=== PATIENT | male | born 1990 | race Caucasian/White ===

== ENCOUNTER 2018-11-03 08:42 | Emergency (ER) | payer SELFPAY ==
[2018-11-03] MEDS ORDERED: fentaNYL 100 MCG/2 ML SDV IVPUSH ONE (08:53)
--- NOTE | 2018-11-03 08:57 | EDM.PDOC ---
ED HPI GENERAL MEDICAL PROBLEM - General Stated Complaint: right groin pain Time Seen by Provider: 11/03/18 08:45 Source of Information: Reports: Patient History Limitations: Reports: No Limitations - History of Present Illness INITIAL COMMENTS - FREE TEXT/NARRATIVE: states that at about 0700 this AM he developed some right groin pain. It radiates from the testicle up into the right flank area. Did initially show up at the clinic but was unable to walk due to the pain. He was then brought to the ER. Pain is severe and sharp stabbing. Is vomiting. Had been fine prior to this beginning. Denies any trauma to the groin or abdomen. Denies any history of kidney stones. Has never had pain like this in the past. Location: Reports: Abdomen, Other (right testicle) Quality: Reports: Sharp, Stabbing Associated Symptoms: Reports: Nausea/Vomiting Right Groin Pain Score (Numeric/FACES): 6 - Related Data Allergies Allergy/AdvReac Type Severity Reaction Status Date / Time No Known Allergies Allergy Verified 11/03/18 09:08 Home Meds: Home Meds . [No Known Home Meds] 11/03/18 [History] Past Medical History - Past Health History Medical/Surgical History: Denies Medical/Surgical History ED ROS GENERAL - Review of Systems Review Of Systems: See Below Constitutional: Reports: No Symptoms Respiratory: Reports: No Symptoms Cardiovascular: Reports: No Symptoms GI/Abdominal: Denies: Diarrhea : Reports: Flank Pain. Denies: Hematuria Musculoskeletal: Reports: No Symptoms Skin: Reports: No Symptoms Neurological: Reports: No Symptoms ED EXAM, RENAL/ - Physical Exam Exam: See Below Exam Limited By: No Limitations General Appearance: Alert, WD/WN, Severe Distress Respiratory/Chest: No Respiratory Distress Cardiovascular: Regular Rate, Rhythm GI/Abdominal: Normal Bowel Sounds, Tender (to the right flank and into the groin and testicles.) (Male) Exam: No: Hernia, Scrotal Swelling, Scrotum Tenderness (L), Scrotum Tenderness (R), Testicular Tenderness (L), Testicular Tenderness (R) Neurological: Alert, Oriented Course - Vital Signs Last Recorded V/S: Last Vital Signs Temp 98.0 F 11/03/18 08:45 Pulse 75 11/03/18 09:32 Resp 20 11/03/18 09:32 BP 143/76 H 11/03/18 08:45 Pulse Ox 100 11/03/18 09:32 - Orders/Labs/Meds Orders: Active Orders 24 hr Category Date Time Status Abdomen Pelvis wo Cont [CT] Stat Exams 11/03/18 09:04 Taken UA W/MICROSCOPIC [URIN] Stat Lab 11/03/18 09:05 Ordered Sodium Chloride 0.9% [Normal Saline] 1,000 ml Med 11/03/18 09:00 Active IV ASDIRECTED Sodium Chloride 0.9% [Normal Saline] 1,000 ml Med 11/03/18 10:15 Active IV ASDIRECTED Medication Orders Sodium Chloride (Normal Saline) 1,000 mls @ 500 mls/hr IV ASDIRECTED BECKY Last Admin: 11/03/18 11:08 Dose: 500 mls/hr Infusion: 11/03/18 11:04 Dose: 500 mls/hr Admin: 11/03/18 09:04 Dose: 500 mls/hr Sodium Chloride (Normal Saline) 1,000 mls @ 500 mls/hr IV ASDIRECTED BECKY Labs: Laboratory Tests 11/03/18 11/03/18 Range/Units 09:05 09:05 WBC 9.6 (5.0-10.0) 10^3/uL RBC 5.03 (4.50-6.00) 10^6/uL Hgb 15.7 (14.0-18.0) g/dL Hct 44.2 (40.0-54.0) % MCV 87.9 (82.0-94.0) fL MCH 31.2 (27.0-32.0) pg MCHC 35.5 (33.0-38.0) g/dL RDW Coeff of Leif 12.7 (11.0-15.0) % Plt Count 262 (150-400) 10^3/uL Neut % (Auto) 74.0 (35-85) % Lymph % (Auto) 16.0 (10-55) % [place] % (Auto) 7.5 (0-16) % Eos % (Auto) 2.3 (0-5) % Baso % (Auto) 0.2 (0-3) % Neut # (Auto) 7.14 H (1.80-7.00) 10^3/uL Lymph # (Auto) 1.54 (1.00-4.80) 10^3/uL [place] # (Auto) 0.72 (0.00-0.80) 10^3/uL Eos # (Auto) 0.22 (0.00-0.45) 10^3/uL Baso # (Auto) 0.02 10^3/uL Sodium 140 (136-145) mEq/L Potassium 3.4 L (3.5-5.0) mEq/L Chloride 104 (98-106) mEq/L Carbon Dioxide 19 L (21-32) mmol/L BUN 14 (7-18) mg/dL Creatinine 1.4 H (0.7-1.3) mg/dL Est Cr Clr Drug Dosing 74.76 mL/min Estimated GFR (MDRD) > 60 (>=60) mL/min Glucose 167 H (75-99) mg/dL Calcium 9.1 (8.4-10.1) mg/dL Meds: Medications Generic Name Dose Route Start Last Admin Trade Name Freq PRN Reason Stop Dose Admin Sodium Chloride 1,000 mls @ 500 mls/hr 11/03/18 09:00 11/03/18 11:08 Normal Saline IV 500 mls/hr ASDIRECTED BECKY Administration Sodium Chloride 1,000 mls @ 500 mls/hr 11/03/18 10:15 Normal Saline IV ASDIRECTED BECKY Discontinued Medications Generic Name Dose Route Start Last Admin Trade Name Freq PRN Reason Stop Dose Admin Fentanyl 50 mcg 11/03/18 08:53 11/03/18 08:59 Sublimaze IVPUSH 11/03/18 08:54 50 mcg ONETIME ONE Administration Hydromorphone HCl 1 mg 11/03/18 10:11 11/03/18 10:15 Dilaudid IVPUSH 11/03/18 10:12 1 mg ONETIME ONE Administration Ketorolac Tromethamine 60 mg 11/03/18 10:22 11/03/18 10:44 Toradol IM 11/03/18 10:23 60 mg ONETIME ONE Administration Ondansetron HCl 4 mg 11/03/18 09:15 11/03/18 09:06 Zofran IVPUSH 11/03/18 09:16 4 mg NOW ONE Administration Tamsulosin HCl 0.4 mg 11/03/18 10:23 11/03/18 10:44 Flomax PO 11/03/18 10:24 0.4 mg ONETIME ONE Administration - Re-Assessments/Exams Free Text/Narrative Re-Assessment/Exam: 11/03/18 10:[address] results of 2-3 mm stone in the right ureter above the junction. Will continue the IV fluids and pain meds and get UA when able. Will plane to discharge after IV fluids infused. 11/03/18 12:27 In to visit and his pain is completely gone at this time will discharge at this time. Departure - Departure Time of Disposition: 12:29 Disposition: Home, Self-Care 01 Condition: Good Clinical Impression: Nephrolithiasis - Discharge Information *PRESCRIPTION DRUG MONITORING PROGRAM REVIEWED*: Not Applicable *COPY OF PRESCRIPTION DRUG MONITORING REPORT IN PATIENT BARTOLO: Not Applicable Instructions: Kidney Stones Additional Instructions: push fluids as much as possible recheck if any new concerns noted. - Problem List & Annotations (1) Nephrolithiasis SNOMED Code(s): 56552832 Code(s): N20.0 - CALCULUS OF KIDNEY Status: Acute - Problem List Review Problem List Initiated/Reviewed/Updated: Yes - My Orders Last 24 Hours: My Active Orders 11/03/18 09:00 Sodium Chloride 0.9% [Normal Saline] 1,000 ml IV ASDIRECTED 11/03/18 09:04 Abdomen Pelvis wo Cont [CT] Stat 11/03/18 09:05 UA W/MICROSCOPIC [URIN] Stat 11/03/18 10:15 Sodium Chloride 0.9% [Normal Saline] 1,000 ml IV ASDIRECTED - Assessment/Plan Last 24 Hours: My Active Orders 11/03/18 09:00 Sodium Chloride 0.9% [Normal Saline] 1,000 ml IV ASDIRECTED 11/03/18 09:04 Abdomen Pelvis wo Cont [CT] Stat 11/03/18 09:05 UA W/MICROSCOPIC [URIN] Stat 11/03/18 10:15 Sodium Chloride 0.9% [Normal Saline] 1,000 ml IV ASDIRECTED
[2018-11-03] MEDS: Sodium Chloride 0.9% 1,000 ML IV SCH ×2 (09:04→11:08)
[2018-11-03] MEDS ORDERED: Ondansetron 4 MG/2 ML SDV IVPUSH ONE (09:15)
[2018-11-03 09:27] LABS: CHLORIDE,CL 104 mEq/L (98-106); SODIUM,NA 140 mEq/L (136-145)
[2018-11-03] MEDS ORDERED: HYDROmorphone 1 MG/ML Syringe IVPUSH ONE (10:11)
[2018-11-03] MEDS ORDERED: Sodium Chloride 0.9% 1,000 ML IV SCH (10:15)
[2018-11-03] MEDS ORDERED: Ketorolac 60 MG/2 ML SDV IM ONE (10:22)
[2018-11-03] MEDS ORDERED: Tamsulosin 0.4 MG Cap.ER PO ONE (10:23)
== END 2018-11-03 13:11 | disposition home or self-care (01) ==
LOC: CC.ED 08:42
DX: N13.2 Hydronephrosis with renal and ureteral calculous obstruction (principal)
CPT/HCPCS: 36415; 74176; 80048; 85025; 96365; 96366; 96375; 99284-25; A9270-GY; J1170; J1885; J2405; J3010; J7030

== ENCOUNTER 2020-03-18 13:22 | Emergency (ER) | payer SELFPAY ==
[2020-03-18] MEDS ORDERED: Pantoprazole 40 MG Vial IVPUSH STA (13:51)
[2020-03-18] MEDS ORDERED: Sodium Chloride 0.9% 1,000 ML IV ONE (13:51)
[2020-03-18] MEDS ORDERED: Morphine 2 MG/ML SYRINGE IVPUSH ONE (13:51)
[2020-03-18 13:52] LABS: CHLORIDE,CL 102 mEq/L (98-106); SODIUM,NA 139 mEq/L (136-145)
[2020-03-18] MEDS ORDERED: Iopamidol 755 Mg/ML 100 ML Bottle IVPUSH ONE (13:55)
--- NOTE | 2020-03-18 16:15 | EDM.PDOC ---
ED HPI GENERAL MEDICAL PROBLEM - General Chief Complaint: Abdominal Pain Stated Complaint: Mid ABD Pain Time Seen by Provider: 03/18/20 13:40 Source of Information: Reports: Patient History Limitations: Reports: No Limitations - History of Present Illness INITIAL COMMENTS - FREE TEXT/NARRATIVE: Tashi is a 30 yo male who presents to the ED with complaints of abdominal pain. States the pain started this morning and has progressively gotten worse thru out the day. States it started in the midabdominal area but does feel it into the right side as well. Denies any fevers. No nausea or vomiting. States he has had a decreased in appetite today as well. Has been drinking fluids. Bowel movements typically regular but hasn't went today. Is able to still pass gas. No urinary complaints. Admits to take 4 Advil PM's last night and wasn't sure if this lead to his symptoms. mid abd Pain Score (Numeric/FACES): 10 - Related Data Allergies Allergy/AdvReac Type Severity Reaction Status Date / Time No Known Allergies Allergy Verified 03/18/20 13:47 Home Meds: Home Meds . [No Known Home Meds] 11/03/18 [History] Past Medical History - Past Health History Medical/Surgical History: Denies Medical/Surgical History Neurological History: Reports: Concussion - Infectious Disease History Infectious Disease History: Reports: Chicken Pox - Past Surgical History Neurological Surgical History: Reports: None Social & Family History - Family History Family Medical History: Noncontributory - Tobacco Use Smoking Status *Q: Current Every Day Smoker Years of Tobacco use: 10 Packs/Tins Daily: 1 - Caffeine Use Caffeine Use: Reports: None - Recreational Drug Use Recreational Drug Use: No ED ROS GENERAL - Review of Systems Review Of Systems: See Below Constitutional: Reports: Decreased Appetite. Denies: Fever, Chills HEENT: Reports: No Symptoms Respiratory: Reports: No Symptoms Cardiovascular: Reports: No Symptoms GI/Abdominal: Reports: Abdominal Pain, Decreased Appetite, Flatus. Denies: Bloody Stool, Constipation, Diarrhea, Distension, Nausea, Vomiting : Reports: No Symptoms Musculoskeletal: Reports: No Symptoms Skin: Reports: No Symptoms Neurological: Reports: No Symptoms ED EXAM, GI/ABD - Physical Exam Exam: See Below Exam Limited By: No Limitations General Appearance: Alert. No: Lethargic, Severe Distress, Active Emesis Ears: Normal External Exam, Hearing Grossly Normal Nose: Normal Inspection, Normal Mucosa, No Blood Throat/Mouth: Normal Inspection, No Airway Compromise Head: Atraumatic, Normocephalic Neck: Normal Inspection, Supple Respiratory/Chest: No Respiratory Distress, Lungs Clear, Normal Breath Sounds, Chest Non-Tender Cardiovascular: Regular Rate, Rhythm, No Murmur GI/Abdominal Exam: Normal Bowel Sounds, Soft, No Organomegaly, No Distention, Tender (midepigastric to superior umbilical area) Psychiatric: Normal Affect, Normal Mood Skin Exam: Warm, Dry, Intact Course - Vital Signs Last Recorded V/S: Last Vital Signs Temp 97.9 F 03/18/20 13:29 Pulse 72 03/18/20 14:39 Resp 16 03/18/20 14:39 BP 130/74 03/18/20 14:39 Pulse Ox 98 03/18/20 14:39 - Orders/Labs/Meds Orders: Active Orders 24 hr Category Date Time Status Abdomen Pelvis w Cont [CT] Stat Exams 03/18/20 13:50 Taken Labs: Laboratory Tests 03/18/20 03/18/20 03/18/20 Range/Units 13:32 13:32 13:50 WBC 7.7 (5.0-10.0) 10^3/uL RBC 5.54 (4.50-6.00) 10^6/uL Hgb 17.1 (14.0-18.0) g/dL Hct 48.4 (40.0-54.0) % MCV 87.4 (82.0-94.0) fL MCH 30.9 (27.0-32.0) pg MCHC 35.3 (33.0-38.0) g/dL RDW Coeff of Leif 12.6 (11.0-15.0) % Plt Count 266 (150-400) 10^3/uL Neut % (Auto) 57.6 (35-85) % Lymph % (Auto) 31.7 (10-55) % [place] % (Auto) 8.2 (0-16) % Eos % (Auto) 2.0 (0-5) % Baso % (Auto) 0.5 (0-3) % Neut # (Auto) 4.41 (1.80-7.00) 10^3/uL Lymph # (Auto) 2.43 (1.00-4.80) 10^3/uL [place] # (Auto) 0.63 (0.00-0.80) 10^3/uL Eos # (Auto) 0.15 (0.00-0.45) 10^3/uL Baso # (Auto) 0.04 10^3/uL Sodium 139 (136-145) mEq/L Potassium 4.3 (3.5-5.0) mEq/L Chloride 102 (98-106) mEq/L Carbon Dioxide 24 (21-32) mmol/L BUN 14 (7-18) mg/dL Creatinine 1.2 (0.7-1.3) mg/dL Est Cr Clr Drug Dosing TNP Estimated GFR (MDRD) > 60 (>=60) mL/min Glucose 89 D (75-99) mg/dL Lactic Acid 2.3 H (0.4-2.0) mmol/L Calcium 9.8 (8.4-10.1) mg/dL Magnesium 1.7 L (1.8-2.4) mg/dL Total Bilirubin 1.0 (0.0-1.0) mg/dL AST 16 (15-37) U/L ALT 21 (12-78) U/L Alkaline Phosphatase 64 (46-116) U/L C-Reactive Protein < 0.2 L (0.2-0.8) mg/dL Total Protein 8.5 H (6.4-8.2) g/dL Albumin 4.7 (3.4-5.0) g/dL Lipase 94 (73-393) U/L Urine Color (YELLOW) Urine Appearance (CLEAR) Urine pH (4.5-8.0) Ur Specific Johnson (1.003-1.020) Urine Protein (NEGATIVE) mg/dL Urine Glucose (UA) (NEGATIVE) mg/dL Urine Ketones (NEGATIVE) mg/dL Urine Occult Blood (NEGATIVE) Urine Nitrite (NEGATIVE) Urine Bilirubin (NEGATIVE) Urine Urobilinogen (0.2-1.0) EU/dL Ur Leukocyte Esterase (NEGATIVE) Urine Opiates Screen (NEGATIVE) Ur Oxycodone Screen (NEGATIVE) Urine Methadone Screen (NEGATIVE) Ur Barbiturates Screen (NEGATIVE) U Tricyclic Antidepress (NEGATIVE) Ur Phencyclidine Scrn (NEGATIVE) Ur Amphetamine Screen (NEGATIVE) U Methamphetamines Scrn (NEGATIVE) Urine MDMA Screen (NEGATIVE) U Benzodiazepines Scrn (NEGATIVE) Urine Cocaine Screen (NEGATIVE) U Marijuana (THC) Screen (NEGATIVE) 03/18/20 03/18/20 Range/Units 14:34 14:37 WBC (5.0-10.0) 10^3/uL RBC (4.50-6.00) 10^6/uL Hgb (14.0-18.0) g/dL Hct (40.0-54.0) % MCV (82.0-94.0) fL MCH (27.0-32.0) pg MCHC (33.0-38.0) g/dL RDW Coeff of Leif (11.0-15.0) % Plt Count (150-400) 10^3/uL Neut % (Auto) (35-85) % Lymph % (Auto) (10-55) % [place] % (Auto) (0-16) % Eos % (Auto) (0-5) % Baso % (Auto) (0-3) % Neut # (Auto) (1.80-7.00) 10^3/uL Lymph # (Auto) (1.00-4.80) 10^3/uL [place] # (Auto) (0.00-0.80) 10^3/uL Eos # (Auto) (0.00-0.45) 10^3/uL Baso # (Auto) 10^3/uL Sodium (136-145) mEq/L Potassium (3.5-5.0) mEq/L Chloride (98-106) mEq/L Carbon Dioxide (21-32) mmol/L BUN (7-18) mg/dL Creatinine (0.7-1.3) mg/dL Est Cr Clr Drug Dosing Estimated GFR (MDRD) (>=60) mL/min Glucose (75-99) mg/dL Lactic Acid (0.4-2.0) mmol/L Calcium (8.4-10.1) mg/dL Magnesium (1.8-2.4) mg/dL Total Bilirubin (0.0-1.0) mg/dL AST (15-37) U/L ALT (12-78) U/L Alkaline Phosphatase (46-116) U/L C-Reactive Protein (0.2-0.8) mg/dL Total Protein (6.4-8.2) g/dL Albumin (3.4-5.0) g/dL Lipase (73-393) U/L Urine Color Yellow (YELLOW) Urine Appearance Clear (CLEAR) Urine pH 7.0 (4.5-8.0) Ur Specific Johnson 1.015 (1.003-1.020) Urine Protein Negative (NEGATIVE) mg/dL Urine Glucose (UA) Negative (NEGATIVE) mg/dL Urine Ketones 15 H (NEGATIVE) mg/dL Urine Occult Blood Negative (NEGATIVE) Urine Nitrite Negative (NEGATIVE) Urine Bilirubin Negative (NEGATIVE) Urine Urobilinogen 0.2 (0.2-1.0) EU/dL Ur Leukocyte Esterase Negative (NEGATIVE) Urine Opiates Screen Negative (NEGATIVE) Ur Oxycodone Screen Negative (NEGATIVE) Urine Methadone Screen Negative (NEGATIVE) Ur Barbiturates Screen Negative (NEGATIVE) U Tricyclic Antidepress Negative (NEGATIVE) Ur Phencyclidine Scrn Negative (NEGATIVE) Ur Amphetamine Screen Negative (NEGATIVE) U Methamphetamines Scrn Negative (NEGATIVE) Urine MDMA Screen Negative (NEGATIVE) U Benzodiazepines Scrn Negative (NEGATIVE) Urine Cocaine Screen Negative (NEGATIVE) U Marijuana (THC) Screen Positive H (NEGATIVE) Meds: Medications Discontinued Medications Generic Name Dose Route Start Last Admin Trade Name Freq PRN Reason Stop Dose Admin Sodium Chloride 1,000 mls @ 999 mls/hr 03/18/20 13:51 03/18/20 15:23 Normal Saline IV 03/18/20 14:51 Infused .BOLUS ONE Infusion Iopamidol 100 ml 03/18/20 13:55 03/18/20 14:08 Isovue-370 (76%) IVPUSH 03/18/20 13:56 100 ml ONETIME ONE Administration Morphine Sulfate 2 mg 03/18/20 13:51 03/18/20 13:55 Morphine IVPUSH 03/18/20 13:52 2 mg ONETIME ONE Administration Pantoprazole Sodium 40 mg 03/18/20 13:51 03/18/20 13:56 Protonix Iv IVPUSH 03/18/20 13:52 40 mg NOW STA Administration - Radiology Interpretation Free Text/Narrative:: CT negative per radiologist. CT Results Date: 03/18/20 Departure - Departure Time of Disposition: 16:15 Disposition: Home, Self-Care 01 Clinical Impression: Abdominal pain Qualifiers: Abdominal location: generalized Qualified Code(s): R10.84 - Generalized abdominal pain - Discharge Information Instructions: Abdominal Pain, Adult Referrals: Erik Melo PA-C [Primary Care Provider] - Additional Instructions: 1) Recommend taking Prilosec 20mg daily for 2 weeks 2) Continue with water intake 3) Refrain from any caffeinated or alcohol beverages. May be secondary to gastric ulcer disease 4) If any fevers, worsening of abdominal pain, diarrhea or any concerns at all, advise reevaluation. Sepsis Event Note (ED) - Evaluation Sepsis Screening Result: No Definite Risk - Focused Exam Vital Signs: Vital Signs Temp Pulse Resp BP BP Pulse Ox 03/18/20 14:39 72 16 130/74 98 03/18/20 14:38 72 03/18/20 13:29 97.9 F 77 26 H 143/86 H 145/87 H 99 - Problem List & Annotations (1) Abdominal pain SNOMED Code(s): 17388490 Code(s): R10.9 - UNSPECIFIED ABDOMINAL PAIN Status: Acute Current Visit: Yes Qualifiers: Abdominal location: generalized Qualified Code(s): R10.84 - Generalized abdominal pain - My Orders Last 24 Hours: My Active Orders 03/18/20 13:50 Abdomen Pelvis w Cont [CT] Stat - Assessment/Plan Last 24 Hours: My Active Orders 03/18/20 13:50 Abdomen Pelvis w Cont [CT] Stat Plan: Tashi was initially given 2mg of Morphine with 40mg of Protonix IV. Pain did improve with tolerable discomfort. GI cocktail given. Will discharge home at this time. CT of the abdomen/pelvis negative. Labs overall unremarkable.
== END 2020-03-18 16:32 | disposition home or self-care (01) ==
LOC: CC.ED 13:22
DX: R10.84 Generalized abdominal pain (principal); F17.210 Nicotine dependence, cigarettes, uncomplicated
CPT/HCPCS: 36415; 74177; 80053; 80305-QW; 81003; 83605; 83690; 83735; 85025; 86140; 96361; 96374; 96375; 99284-25; C9113; J2270; J7030; Q9967

== ENCOUNTER 2020-10-13 17:18 | Emergency (ER) | payer OTHER ==
[2020-10-13] MEDS ORDERED: Bacitracin/Neomycin/Polymyxin B Oint 0.9 GM U/D Packet TOP ONE (17:44)
[2020-10-13] MEDS ORDERED: Diphtheria,Pertussis(Acell),Tetanus Vaccine 0.5 ML Syringe IM ONE (17:44)
--- NOTE | 2020-10-13 17:47 | EDM.PDOC ---
ED HPI GENERAL MEDICAL PROBLEM - General Chief Complaint: Laceration Stated Complaint: laceration Time Seen by Provider: 10/13/20 17:42 Source of Information: Reports: Patient History Limitations: Reports: No Limitations - History of Present Illness INITIAL COMMENTS - FREE TEXT/NARRATIVE: Tashi is a 30 yo male who presents to the ED with c/o laceration to his right thumb. He reports around 0800 he got his thumb put through trimmer meat. Reports it continued to bleed throughout the day, prompting ED visit. He is able to move thumb without difficulty. No longer bleeding. Denies any other issues. Onset: Today Onset Date: 10/13/20 Onset Time: 08:00 Location: Reports: Upper Extremity, Right Improves with: Reports: None Worsens with: Reports: None Associated Symptoms: Reports: No Other Symptoms Right Finger-Thumb Pain Score (Numeric/FACES): 7 - Related Data Allergies Allergy/AdvReac Type Severity Reaction Status Date / Time No Known Allergies Allergy Verified 10/13/20 17:22 Home Meds: Home Meds . [No Known Home Meds] 11/03/18 [History] Past Medical History - Past Health History Medical/Surgical History: Denies Medical/Surgical History Neurological History: Reports: Concussion - Infectious Disease History Infectious Disease History: Reports: Chicken Pox - Past Surgical History Neurological Surgical History: Reports: None Social & Family History - Family History Family Medical History: No Pertinent Family History - Tobacco Use Tobacco Use Status *Q: Current Every Day Tobacco User Years of Tobacco use: 11 Packs/Tins Daily: 1 - Caffeine Use Caffeine Use: Reports: Coffee, Energy Drinks, Soda - Recreational Drug Use Recreational Drug Use: Yes Recreational Drug Type: Reports: Marijuana/Hashish ED ROS GENERAL - Review of Systems Review Of Systems: Comprehensive ROS is negative, except as noted in HPI. ED EXAM, SKIN/RASH Exam: See Below Exam Limited By: No Limitations General Appearance: Alert, WD/WN, No Apparent Distress Peripheral Pulses: 2+: Radial (R) Extremities: Normal Range of Motion, Normal Capillary Refill, Other (distal aspect of right thumb cut, missing ~ small skin flap well adhered down to lateral aspect of thumb) Neurological: No Motor/Sensory Deficits Skin: Wound/Incision Location, Skin: Upper Extremity, Right Associated features: Tenderness Course - Vital Signs Last Recorded V/S: Last Vital Signs Temp 98 F 10/13/20 17:19 Pulse 79 10/13/20 17:19 Resp 16 10/13/20 17:19 BP 149/62 H 10/13/20 17:19 Pulse Ox 95 10/13/20 17:19 - Orders/Labs/Meds Orders: Active Orders 24 hr Category Date Time Status Vaccines to be Administered [RC] PER UNIT ROUTINE Care 10/13/20 17:44 Active Meds: Medications Discontinued Medications Generic Name Dose Route Start Last Admin Trade Name Magaly PRN Reason Stop Dose Admin Diphtheria/Tetanus/Acell Pertussis 0.5 ml 10/13/20 17:44 Diphtheria,Pertussis(Acell),Tetanus Vaccine 0.5 Ml Syringe IM 10/13/20 17:45 .ONCE ONE Lidocaine HCl 5 ml 10/13/20 17:37 10/13/20 17:46 Lidocaine 1% 5 Ml Sdv INJECT 10/13/20 17:38 Not Given ONETIME ONE Neomycin/Polymyxin/Bacitracin 1 each 10/13/20 17:44 10/13/20 17:46 Bacitracin/Neomycin/Polymyxin B Oint 0.9 Gm U/D Packet TOP 10/13/20 17:45 1 each ONETIME ONE Administration Departure - Departure Time of Disposition: 17:50 Disposition: Home, Self-Care 01 Condition: Good Clinical Impression: Laceration of thumb Qualifiers: Encounter type: initial encounter Damage to nail status: without damage Foreign body presence: without foreign body Laterality: right Qualified Code(s): S61.011A - Laceration without foreign body of right thumb without damage to nail, initial encounter - Discharge Information *PRESCRIPTION DRUG MONITORING PROGRAM REVIEWED*: Not Applicable *COPY OF PRESCRIPTION DRUG MONITORING REPORT IN PATIENT BARTOLO: Not Applicable Instructions: Laceration Care, Adult, [id number] Referrals: Mallory Melo PA-C [Primary Care Provider] - Forms: ED Department Discharge Additional Instructions: - Keep area clean and dry - Cover with bandaid/dressing. May use triple antibiotic ointment - Tylenol or ibuprofen as needed for pain - Follow up for any concerns of infection Sepsis Event Note (ED) - Evaluation Sepsis Screening Result: No Definite Risk - Focused Exam Vital Signs: Vital Signs Temp Pulse Resp BP Pulse Ox 10/13/20 17:19 98 F 79 16 149/62 H 95 - Problem List & Annotations (1) Laceration of thumb SNOMED Code(s): 367578822 Code(s): S61.019A - LACERATION W/O FOREIGN BODY OF THMB W/O DAMAGE TO NAIL, INIT Status: Acute Current Visit: Yes Qualifiers: Encounter type: initial encounter Damage to nail status: without damage Foreign body presence: without foreign body Laterality: right Qualified Code(s): S61.011A - Laceration without foreign body of right thumb without damage to nail, initial encounter - Problem List Review Problem List Initiated/Reviewed/Updated: Yes - My Orders Last 24 Hours: My Active Orders 10/13/20 17:44 Vaccines to be Administered [RC] PER UNIT ROUTINE - Assessment/Plan Last 24 Hours: My Active Orders 10/13/20 17:44 Vaccines to be Administered [RC] PER UNIT ROUTINE Assessment:: Laceration of thumb, right Plan: Distal tip of thumb cut off. Area does not require closure as there is nothing to suture together. Keep area clean and dry. ETHAN as needed. Follow up as needed. Return to ED for emergent needs.
== END 2020-10-13 17:56 | disposition home or self-care (01) ==
LOC: CC.ED 17:18
DX: S61.011A Laceration without foreign body of right thumb without damage to nail, initial encounter (principal); Z72.0 Tobacco use; Z23 Encounter for immunization; W26.8XXA Contact with other sharp object(s), not elsewhere classified, initial encounter
CPT/HCPCS: 90471; 90715; 99282